=== PATIENT | male | born 1980 | race Caucasian/White ===

== ENCOUNTER 2019-12-21 15:17 | Emergency (ER) | payer MEDICAID ==
--- NOTE | 2019-12-21 17:59 | NUR ---
Charly Pascal, RN, pt LWBS at 1530.
== END 2019-12-21 15:30 | disposition left against medical advice (07) ==
LOC: SED 15:17
DX: H57.89 Other specified disorders of eye and adnexa (principal); Z53.21 Procedure and treatment not carried out due to patient leaving prior to being seen by health care provider

== ENCOUNTER 2019-12-23 08:35 | Emergency (ER) | payer MEDICAID ==
[~2019-12-23] VITALS: Ht 170.2 cm; Wt 90.7 kg
[2019-12-23 08:39] VITALS: BP_SYST 153
--- NOTE | 2019-12-23 08:42 | NUR ---
Patient triaged and placed in waiting room. VSS and patient appears in no acute distress at this time. Awaiting available bed, and MD notified of need for MSE.
--- NOTE | 2019-12-23 09:39 | NUR ---
Patient left without being seen.
== END 2019-12-23 09:39 | disposition left against medical advice (07) ==
LOC: SED 08:35
DX: H57.89 Other specified disorders of eye and adnexa (principal); Z53.21 Procedure and treatment not carried out due to patient leaving prior to being seen by health care provider